=== PATIENT | male | born 1980 | race Hispanic/Latino ===

== ENCOUNTER 2017-11-21 06:25 | Emergency (ER) | payer MEDICAID ==
[2017-11-21] MEDS ORDERED: LIDOCAINE HCL 2% VISCOUS 15 ML UDCUP ONE (06:41)
[2017-11-21] MEDS ORDERED: MAG HYDROX/AL HYDROX/SIMETH ES 30 ML SUSP UDCUP ONE (06:41)
[2017-11-21] MEDS ORDERED: DICYCLOMINE HCL 10 MG/5 ML ML PO ONE (06:42)
[2017-11-21] MEDS ORDERED: ONDANSETRON ODT 4 MG TAB ONE (06:43)
== END 2017-11-21 06:57 | disposition home or self-care (01) ==
LOC: EDH 06:25
DX: K29.00 Acute gastritis without bleeding (principal); I10 Essential (primary) hypertension; Z72.0 Tobacco use

== ENCOUNTER 2022-03-27 19:22 | Emergency (ER) | payer MEDICAID ==
[~2022-03-27] VITALS: Ht 175.3 cm; Wt 113.4 kg
[2022-03-27 20:19] LABS: BASOPHILS % (AUTO) 0.4 % (0.0-5.0); HEMATOCRIT 51.1 % (42-54); MEAN CORPUSCULAR HEMOGLOBIN 32.4 pg (27.0-33.0); MEAN CORPUSCULAR HGB CONC 35.4 g/dL (32.0-36.0); MEAN CORPUSCULAR VOLUME 91.6 fL (79-99); MONOCYTES % (AUTO) 5.3 % (3.0-13.0); NEUTROPHILS % (AUTO) 70.7 % (40.0-77.0); PLATELET COUNT (AUTO) 223 K/uL (130-400); RED BLOOD CELL COUNT(AUTO) 5.58 MIL/uL (4.50-6.20); RED CELL DISTRIBUTION WIDTH 13.2 % (11.0-15.5); WHITE BLOOD COUNT (AUTO) 12.5 K/uL (4.8-10.8)
[2022-03-27] MEDS ORDERED: 0.9%NACL 1000ML 1,000 ML IV ONE ×2 (20:30)
[2022-03-27 20:32] LABS: CREATININE 1.6 mg/dL (0.5-1.5); POTASSIUM 3.2 mmol/L (3.5-5.1)
[2022-03-27 20:38] LABS: ALBUMIN 4.4 g/dL (3.5-5.0); TOTAL PROTEIN, SERUM 8.1 g/dL (6.0-8.3)
[2022-03-27 23:23] VITALS: BP 110/73
== END 2022-03-27 23:24 | disposition home or self-care (01) ==
LOC: EDH 19:22
DX: I95.1 Orthostatic hypotension (principal); E86.0 Dehydration; M54.6 Pain in thoracic spine; E11.9 Type 2 diabetes mellitus without complications; F12.90 Cannabis use, unspecified, uncomplicated; I10 Essential (primary) hypertension; F17.200 Nicotine dependence, unspecified, uncomplicated
CPT/HCPCS: 99284; 96360; 96361; 82550; 84484; 80053; 85025; 83605; 36415; 93005; 84145; J7030

== ENCOUNTER 2022-12-05 15:49 | Emergency (ER) | payer MEDICAID ==
[~2022-12-05] VITALS: Ht 175.3 cm; Wt 113.4 kg
[2022-12-05] MEDS ORDERED: KETOROLAC 30MG VIAL (30MG/ML) IVP ONE (16:30)
[2022-12-05] MEDS ORDERED: DEXAMETHASONE SOD PHOSPHATE 4 MG/ML 1ML VIAL IVP ONE (16:30)
[2022-12-05] MEDS ORDERED: ZOSYN 3.375GM +NS 50ML IVPB ONE (16:30)
[2022-12-05] MEDS ORDERED: 0.9%NACL 1000ML 1,000 ML IV ONE (16:30)
[2022-12-05 16:33] LABS: BASOPHILS % (AUTO) 0.3 % (0.0-5.0); EOSINOPHILS % (AUTO) 2.1 % (0.0-8.0); HEMATOCRIT 47.2 % (42-54); LYMPHOCYTES % (AUTO) 17.4 % (21.0-51.0); MEAN CORPUSCULAR VOLUME 91.5 fL (79-99); MONOCYTES % (AUTO) 8.1 % (3.0-13.0); NEUTROPHILS % (AUTO) 71.6 % (40.0-77.0); PLATELET COUNT (AUTO) 210 K/uL (130-400); RED BLOOD CELL COUNT(AUTO) 5.16 MIL/uL (4.50-6.20); RED CELL DISTRIBUTION WIDTH 13.1 % (11.0-15.5); WHITE BLOOD COUNT (AUTO) 14.6 K/uL (4.8-10.8)
[2022-12-05 17:00] LABS: CARBON DIOXIDE 27 mmol/L (21-32); CHLORIDE 103 mmol/L (101-111); CREATININE 0.9 mg/dL (0.5-1.5); GLOMERULAR FILTR. RATE CALC 109 mL/min (>90); GLUCOSE,RANDOM 111 mg/dL (70-105); POTASSIUM 3.3 mmol/L (3.5-5.1); SODIUM SERUM 141 mmol/L (136-145); UREA NITROGEN, BLOOD 18 mg/dL (7-18)
[2022-12-05 17:04] LABS: ALANINE AMINOTRANSFERASE 46 U/L (12-78); ALBUMIN 3.7 g/dL (3.5-5.0); ASPARTATE AMINOTRANSFERASE 24 U/L (10-37); TOTAL PROTEIN, SERUM 6.9 g/dL (6.0-8.3)
[2022-12-05 17:09] LABS: CRP QUANTITATIVE < 2.00 mg/L (0.00-9.0)
[2022-12-05] MEDS ORDERED: METH4TAB3 PO (18:14)
[2022-12-05] MEDS ORDERED: IBUP-2070 PO (18:14)
[2022-12-05] MEDS ORDERED: AMOX-426 PO (18:14)
[2022-12-05 18:38] VITALS: BP 133/78
== END 2022-12-05 18:43 | disposition home or self-care (01) ==
LOC: EDH 15:49
DX: J02.9 Acute pharyngitis, unspecified (principal); D72.829 Elevated white blood cell count, unspecified; I10 Essential (primary) hypertension; E11.9 Type 2 diabetes mellitus without complications; F17.200 Nicotine dependence, unspecified, uncomplicated
CPT/HCPCS: 99285; 96365; 70490; 96375; 80053; 85025; 87040 ×2; 87880; 83605; 86140; 36415; J1100; J7030; J1885; J2543